=== PATIENT | male | born 1990 | race Two or more races ===

== ENCOUNTER 2019-03-12 01:22 | Inpatient (IN) | payer BC ==
[~2019-03-12] VITALS: Ht 177.8 cm; Wt 72.1 kg
[2019-03-12] MEDS ORDERED: HYDROmorphone HCL 2 MG/ML VL IV ONE (04:30)
[2019-03-12] MEDS ORDERED: SODIUM CHLORIDE 0.9% 1,000 ML IV ONE (04:30)
[2019-03-12] MEDS ORDERED: ONDANSETRON HCL 4 MG/2 ML VIAL IV ONE ×2 (04:30→21:30)
[2019-03-12 05:26] LABS: Basophils # (auto) 0.1 uL; Basophils % (auto) 1.4 % (0.0-2.0); Eosinophils # (auto) 0.2 uL; Eosinophils % (auto) 2.4 % (0.0-7.0); Hematocrit 43.9 % (41.0-53.0); Hemoglobin 15.2 g/dL (13.5-17.5); Lymphocytes # (auto) 1.3 uL; Lymphocytes % (auto) 18.8 % (10.0-50.0); Mean Corpuscular Hemoglobin 33.4 pg (28.0-32.0); Mean Corpuscular Hgb Conc. 34.5 g/dL (32.0-36.0); Mean Corpuscular Volume 96.6 fL (80.0-100.0); Monocytes # (auto) 0.6 uL; Monocytes % (auto) 9.1 % (0.0-12.0); Neutrophils # (auto) 4.8 uL; Neutrophils % (auto) 68.3 % (37.0-80.0); Nucleated Red Blood Cells % 0.1 %; Platelet Count (auto) 215 10^3/uL (140-450); Red Blood Cells 4.55 10^6/uL (4.5-5.90); Red Cell Distribution Width 12.8 % (11.8-14.3)
[2019-03-12 05:41] LABS: INR 1.01 (0.9-1.15); Partial Thromboplastin Time 25.5 sec (23.64-32.05)
[2019-03-12 05:43] LABS: Albumin 3.9 g/dL (3.4-5.0); Calcium 8.9 mg/dL (8.5-10.1)
[2019-03-12 05:47] LABS: BUN/Creatinine Ratio 8.6; Bilirubin, Total 0.5 mg/dL (0.2-1.0); Total Protein 7.1 g/dL (6.4-8.2)
[2019-03-12 08:14] LABS: Urine Bacteria NONE SEEN /hpf (None Seen); Urine Blood Negative /uL (Negative); Urine Specific Gravity 1.014 (1.001-1.035); Urine WBC 1 /hpf (0 - 3)
[2019-03-12] MEDS: MORPHINE SULF INJ 2 MG/ML SYRINGE 1ML IV PRN ×2 (09:12→17:18)
[2019-03-12] MEDS: ONDANSETRON HCL 4 MG/2 ML VIAL IV PRN ×2 (09:12→17:18)
[2019-03-12] MEDS ORDERED: ceFAZolin 1GM/50ML 50 ML IV ONE (19:22)
[2019-03-12] MEDS ORDERED: LIDOCAINE W/ EPINEPHRINE 1 % INJ 30ML ONE (19:34)
[2019-03-12] MEDS ORDERED: GLYCOPYRROLATE 0.2 MG/ML 1ML VIAL IV ONE (20:04)
[2019-03-12] MEDS ORDERED: NEOSTIGMINE 1 MG/ML INJ (10mg/10ML VIAL) IV ONE (20:04)
[2019-03-12] MEDS ORDERED: SUCCINYLCHOLINE CHLORIDE 20 MG/ML 10ML VIAL IV ONE (20:07)
[2019-03-12] MEDS ORDERED: ROCURONIUM 10MG/ML 10ML VIAL IV ONE (20:10)
[2019-03-12] MEDS ORDERED: PROPOFOL 10 MG/ML 20 ML IV ONE (20:11)
[2019-03-12] MEDS ORDERED: fentaNYL CITRATE 100 MCG/2 ML VL ONE (20:11)
[2019-03-12] MEDS ORDERED: MIDAZOLAM HCL 1MG/1ML-2 ML VIAL ONE (20:11)
[2019-03-12] MEDS ORDERED: ePHEDrine SULFATE 50 MG/ML AMP IV PRN (21:30)
[2019-03-12] MEDS ORDERED: hydrALAZINE HCL 20 MG/ML VL IV PRN (21:30)
[2019-03-12] MEDS: ceFAZolin 1GM/50ML 50 ML IV SCH (22:00)
[2019-03-12] MEDS ORDERED: HYDROmorphone HCL 2 MG/ML VL IV PRN (22:35)
[2019-03-12] MEDS: HYDROmorphone HCL 2 MG/ML VL IV PRN ×2 (23:00→23:10)
[2019-03-12 23:20] VITALS: BP 120/75
--- NOTE | 2019-03-12 23:20 | NUR ---
MS admit from [facility] admitted to [facility] after SBAR received from Fartun HORTA. Patient oriented to Galina Mendosa RN primary RN, unit, room, bed, and unit policies regarding patient care and visiting hours. Patient weighed by bedscale and encouraged to call if they need something. All questions and concerns addressed, patient verbalized understanding. Note: Fall and safety precautions in place. Call light within reach. Addendum: 03/13/19 at 0208 by Galina Mendosa RN RN Per MANAGER UNDERWRITINGMYCHAL Willoughby, instructed to not administer 2200 Ancef because she gave dose at 1999. 2200 Ancef non-administered.
--- NOTE | 2019-03-13 00:30 | NUR ---
AMA Pt asked to go downstairs to grab personal belongings from car. Explained to pt that AMA form must be signed prior to patient leaving unit and going downstairs. Pt verbalized understanding and agreed to sign AMA. AMA form signed and placed in chart.
--- NOTE | 2019-03-13 00:33 | NUR ---
PT OFF UNIT Pt off unit, going downstairs to grab personal belongings from car. Pt in wheelchair and accompanied by staff member.
--- NOTE | 2019-03-13 00:48 | NUR ---
PT BACK ON FLOOR Pt back in room. No distress noted. Will continue to monitor
[2019-03-13] MEDS ORDERED: ASCO500T11 PO (01:18)
[2019-03-13] MEDS: MORPHINE SULF INJ 2 MG/ML SYRINGE 1ML IV PRN ×5 (01:49→20:45)
[2019-03-13 05:00] VITALS: BP 103/57
[2019-03-13] MEDS: ceFAZolin 1GM/50ML 50 ML IV SCH (05:10)
[2019-03-13 06:50] LABS: Basophils # (auto) 0 uL; Basophils % (auto) 0.5 % (0.0-2.0); Eosinophils # (auto) 0.2 uL; Eosinophils % (auto) 3.7 % (0.0-7.0); Hematocrit 37.1 % (41.0-53.0); Hemoglobin 13.1 g/dL (13.5-17.5); Lymphocytes # (auto) 1.3 uL; Lymphocytes % (auto) 19.6 % (10.0-50.0); Mean Corpuscular Hemoglobin 33.9 pg (28.0-32.0); Mean Corpuscular Hgb Conc. 35.2 g/dL (32.0-36.0); Mean Corpuscular Volume 96.5 fL (80.0-100.0); Monocytes # (auto) 0.6 uL; Monocytes % (auto) 8.8 % (0.0-12.0); Neutrophils # (auto) 4.4 uL; Neutrophils % (auto) 67.4 % (37.0-80.0); Platelet Count (auto) 185 10^3/uL (140-450); Red Blood Cells 3.85 10^6/uL (4.5-5.90); Red Cell Distribution Width 12.6 % (11.8-14.3); White Blood Cell 6.5 10^3/uL (4.4-10.8)
[2019-03-13 06:54] LABS: Calcium 8.1 mg/dL (8.5-10.1); Potassium 3.7 mmol/L (3.5-5.1)
[2019-03-13 06:56] LABS: BUN/Creatinine Ratio 7.2
--- NOTE | 2019-03-13 07:20 | NUR ---
Opening Shift Note Assumed care of patient, awake and alert. No S/S of distress or SOB. Pt rates pain at an 8/10. Pt is willing to wait until pain medications are due. Bed in lowest and locked position with side rails up x2. Instructed on POC and to call for assist PRN, will continue to monitor for changes Q1hr and PRN.
[2019-03-13 08:02] VITALS: BP 101/54
--- NOTE | 2019-03-13 09:05 | NUR ---
Butler catheter dc'd Order to discontinue Butler catheter. Butler dc'd with clean technique following deflation of balloon, balloon intact upon removal. Patient tolerated well with no complaints of pain. 200ml in Butler catheter bag. Continue care.
[2019-03-13 09:30] VITALS: BP 101/54
[2019-03-13 13:54] VITALS: BP 116/64
--- NOTE | 2019-03-13 14:46 | NUR ---
assessment Per consult patient doesn't have PCP. Camille Merrill has seen patient for PCP. Addendum: 03/13/19 at 1447 by Camille Loco Amended: Links added.
[2019-03-13 16:00] VITALS: BP 109/60
--- NOTE | 2019-03-13 16:17 | NUR ---
ileana wright rounding on patient
--- NOTE | 2019-03-13 16:18 | NUR ---
carlos ramirez per clearance from Nancy [facility] (under dr fitz[facility]) the procedure can be done as outpatient per nancy
--- NOTE | 2019-03-13 16:24 | NUR ---
md ramirez calling back, noted that he wants to wait for discharge and speak with Nancy tomorrow, per MD ramirez patient is not ready to discharge right now, too much pain. Will note to the primary nurse
--- NOTE | 2019-03-13 17:00 | NUR ---
YUE GASTELUM ASKED ABOUT D/C ON PT. DISCUSSED DR. JAQUELINE RUTLEDGE OF PAIN MANAGEMENT. PT AGREES TO STAY UNTIL PAIN IS CONTROLLED.
[2019-03-13] MEDS: HYDROcodone-ACET 5/325MG TAB PO PRN (17:40)
--- NOTE | 2019-03-13 19:30 | NUR ---
Opening Shift Note Assumed care of patient, awake and alert. No S/S of distress/SOB or pain. Insructed on POC and to callfor assist PRN, will continue to monitor for changes Q1hr and PRN. Fall and safety precautions in place. Call light within reach.
[2019-03-13 22:00] VITALS: BP 117/66
[2019-03-13] MEDS: DOCUSATE SOD 100 MG CAP PO SCH (22:18)
[2019-03-14 05:00] VITALS: BP 119/77
[2019-03-14 06:39] LABS: BUN/Creatinine Ratio 13.3; Calcium 8.4 mg/dL (8.5-10.1); Potassium 3.7 mmol/L (3.5-5.1)
[2019-03-14 06:41] LABS: Basophils # (auto) 0 uL; Basophils % (auto) 0.6 % (0.0-2.0); Eosinophils # (auto) 0.2 uL; Eosinophils % (auto) 2.6 % (0.0-7.0); Hematocrit 40.5 % (41.0-53.0); Lymphocytes # (auto) 1.4 uL; Lymphocytes % (auto) 23.8 % (10.0-50.0); Mean Corpuscular Hemoglobin 33.7 pg (28.0-32.0); Mean Corpuscular Hgb Conc. 34.5 g/dL (32.0-36.0); Mean Corpuscular Volume 97.6 fL (80.0-100.0); Monocytes # (auto) 0.6 uL; Neutrophils # (auto) 3.6 uL; Nucleated Red Blood Cells % 0.2 %; Platelet Count (auto) 189 10^3/uL (140-450); Red Blood Cells 4.15 10^6/uL (4.5-5.90); Red Cell Distribution Width 12.7 % (11.8-14.3); White Blood Cell 5.9 10^3/uL (4.4-10.8)
--- NOTE | 2019-03-14 07:15 | NUR ---
Opening Shift Note Assumed care of patient, asleep and awakes to name. Pt alert. No S/S of distress or SOB. Pt Bed in lowest and locked position with side rails up x2. Instructed on POC and to call for assist PRN, will continue to monitor for changes Q1hr and PRN.
[2019-03-14] MEDS: MORPHINE SULF INJ 2 MG/ML SYRINGE 1ML IV PRN (07:18)
[2019-03-14 09:00] VITALS: BP 127/67
--- NOTE | 2019-03-14 09:30 | NUR ---
MINIMAL AMOUNT OF DRY BLOOD NOTED ON PT DRESSING. DRESSING INTACT. WILL NOTIFY
[2019-03-14] MEDS: DOCUSATE SOD 100 MG CAP PO SCH (09:42)
[2019-03-14] MEDS: HYDROcodone-ACET 5/325MG TAB PO PRN (09:43)
--- NOTE | 2019-03-14 11:00 | NUR ---
DR. PARSONS AT BEDSIDE DISCUSSING POC WITH PT. AWARE OF DRY BLOOD ON PT DRESSING.
--- NOTE | 2019-03-14 11:30 | NUR ---
CALLED KIMBERLEY TAYLOR IN REGARDS TO PT DRESSING CHANGE PRIOR TO DISCHARGE REQUESTED BY DR. PARSONS. LEFT MESSAGE WITH CREW SCHEDULER AT DR OFFICE. AWAITING CALL BACK.
--- NOTE | 2019-03-14 11:55 | NUR ---
KIMBERLEY TAYLOR SPEAKING TO PT ABOUT POC. CLAUDIA STATED THAT THE PT IS ABLE TO REMOVE THE DRESSING FROM THE SURGICAL SITE TOMORROW AND IF HE HAS ANY CONCERNS THAT HE CAN GO INTO THE CLINIC. PT VERBALIZED UNDERSTANDING.
[2019-03-14 13:00] VITALS: BP 127/75
--- NOTE | 2019-03-14 13:30 | NUR ---
Discharge instructions given as ordered. Encourage to follow up with PMD as instructed. All questions and concerns addressed. Patient verbalized understanding. Medication reconciliation form completed and copy given to patient. No home medications held in Pharmacy. No needed vaccines. IV removed with catheter intact, pressure dressing applied.
--- NOTE | 2019-03-14 13:58 | NUR ---
Patient walked off the floor with the refusal of a wheelchair. Pt had all personal belongings. Pt walking with steady gait and No distress noted at time of departure.
== END 2019-03-14 13:58 | disposition home or self-care (01) | DRG 909 ==
LOC: ER 01:30 → EAST 23:48
PROVIDERS: ADMIT Internal Medicine; ATTEND Internal Medicine
PROC: 0VQS0ZZ Repair Penis, Open Approach (ICD-10-PCS; principal; 2019-03-12 20:04)
DX: S39.840A Fracture of corpus cavernosum penis, initial encounter (principal); X58.XXXA Exposure to other specified factors, initial encounter; Y93.89 Activity, other specified; Y92.89 Other specified places as the place of occurrence of the external cause; Y99.8 Other external cause status
CPT/HCPCS: 36415; 72192; 80048; 80053; 81001; 85025; 85610; 85730; 96361; 96374; 96375; 96376; G0378; J0330; J0690; J2250; J2405; J2704